=== PATIENT | female | born 1950 | race African-American/Black ===

== ENCOUNTER 2018-05-16 10:04 | Outpatient (CLI) | payer MEDICARE ==
--- NOTE | 2018-05-16 12:30 | BD ---
BONE DENSITOMETRY USING DEXA: HISTORY: Postmenopausal screening for osteoporosis. LUMBAR SPINE BMD (g/cm2) T-SCORE Z-SCORE L1 0.614 -3.4 -1.7 L2 0.643 -3.5 -1.6 L3 0.752 -3.0 -1.0 L4 0.958 -0.9 1.1 TOTAL 0.748 -2.7 -0.8 NECK 0.583 -2.4 -0.8 TOTAL 0.667 -2.3 -0.9 IMPRESSION: Osteoporosis. POS: [facility]
== END 2018-05-16 10:05 | disposition home or self-care (01) ==
LOC: BICMAMMO 10:04
PROVIDERS: ATTEND Internal Medicine
DX: Z13.820 Encounter for screening for osteoporosis (principal); M81.0 Age-related osteoporosis without current pathological fracture; Z78.0 Asymptomatic menopausal state
CPT/HCPCS: 77080

== ENCOUNTER → 2022-06-10 | Outpatient (CLI) | payer OTHER | LOC: PET 09:30 | PROVIDERS: ATTEND Internal Medicine Hematology & Oncology | DX: C53.8 Malignant neoplasm of overlapping sites of cervix uteri (principal); D63.8 Anemia in other chronic diseases classified elsewhere; N18.9 Chronic kidney disease, unspecified | CPT/HCPCS: 78815; A9552 ==

== ENCOUNTER 2022-06-28 12:10 | Outpatient (CLI) | payer OTHER | END 2022-06-28 12:11 | disposition home or self-care (01) | LOC: SCSMRI 12:10 | PROVIDERS: ATTEND Radiology Radiation Oncology | DX: C53.8 Malignant neoplasm of overlapping sites of cervix uteri (principal) | CPT/HCPCS: 72197 ==

== ENCOUNTER 2022-07-09 10:09 | Day surgery (SDC) | payer OTHER, MEDICAID ==
[2022-07-08 10:25] VITALS: BMI 19.9
[2022-07-09] MEDS ORDERED: Acetaminophen 500 MG TAB ONE (10:38)
[2022-07-09] MEDS ORDERED: Ketorolac Tromethamine 30 MG/ML VIAL ONE (10:43)
[2022-07-09] MEDS ORDERED: Lidocaine 2% PF 5 ML VIAL ONE (10:57)
[2022-07-09] MEDS ORDERED: Bupivacaine/Epinephrine 0.25% 30 ML VIAL ONE (10:57)
[2022-07-09] MEDS ORDERED: Lidocaine 1% (PF) 30 ML VIAL ONE (10:57)
[2022-07-09] MEDS ORDERED: Lidocaine 1% MPF 2 ML VIAL ONE (11:02)
[2022-07-09] MEDS ORDERED: Sodium Chloride 0.9% 100 ML ONE (11:46)
[2022-07-09] MEDS ORDERED: CEFAZOLIN 2 GM VIAL ONE (11:46)
[2022-07-09] MEDS ORDERED: fentaNYL PF 100 MCG/2 ML SYRINGE ONE (12:30)
[2022-07-09] MEDS ORDERED: Midazolam HCl 2 mg/2 ml Vial ONE (12:30)
== END 2022-07-09 14:33 | disposition home or self-care (01) ==
LOC: SDC 10:09
PROVIDERS: ATTEND Specialist
PROC: 0JH60WZ Insertion of Totally Implantable Vascular Access Device into Chest Subcutaneous Tissue and Fascia, Open Approach (ICD-10-PCS; principal; 2022-07-09)
PROC: 02HV33Z Insertion of Infusion Device into Superior Vena Cava, Percutaneous Approach (ICD-10-PCS; 2022-07-09)
DX: C53.9 Malignant neoplasm of cervix uteri, unspecified (principal); I11.9 Hypertensive heart disease without heart failure; E11.29 Type 2 diabetes mellitus with other diabetic kidney complication; E78.5 Hyperlipidemia, unspecified; Z79.83 Long term (current) use of bisphosphonates; Z79.84 Long term (current) use of oral hypoglycemic drugs; Z79.899 Other long term (current) drug therapy
CPT/HCPCS: 36561; 71045; C1788; J1642; J1885; J2001; J2250; J3490

== ENCOUNTER 2022-07-23 12:15 | Day surgery (SDC) | payer OTHER, MEDICAID ==
[2022-07-23] MEDS ORDERED: diphenhydrAMINE 25 MG CAP ONE (13:20)
[2022-07-23] MEDS ORDERED: Acetaminophen 500 MG TAB ONE (13:20)
[2022-07-23] MEDS ORDERED: cloNIDine 0.1 MG TAB ONE ×2 (13:37→14:21)
[2022-07-23] MEDS ORDERED: cloNIDine 0.1 MG TAB PO SCH (13:45)
[2022-07-23 17:51] VITALS: BP 188/70; TEMP 98
== END 2022-07-23 17:52 | disposition home or self-care (01) ==
LOC: ONC/OP 12:15
PROVIDERS: ATTEND Internal Medicine Hematology & Oncology
PROC: 30233N1 Transfusion of Nonautologous Red Blood Cells into Peripheral Vein, Percutaneous Approach (ICD-10-PCS; principal; 2022-07-23)
DX: D64.9 Anemia, unspecified (principal); D69.6 Thrombocytopenia, unspecified
CPT/HCPCS: 36430; 80053; 82248; 83615; 83735; 84100; 84550; 86850; 86900; 86901; P9016

== ENCOUNTER 2022-11-16 09:13 | Day surgery (SDC) | payer OTHER, MEDICAID ==
[~2022-11-16 09:13] MED LIST: Acetaminophen 500 MG TAB PO SCH; diphenhydrAMINE 25 MG CAP PO SCH
[2022-11-16] MEDS ORDERED: Acetaminophen 500 MG TAB ONE (09:53)
[2022-11-16 14:53] VITALS: BP 160/71; TEMP 98.7
== END 2022-11-16 14:54 | disposition home or self-care (01) ==
LOC: ONC/OP 09:13
PROVIDERS: ATTEND Internal Medicine Hematology & Oncology
DX: D64.9 Anemia, unspecified (principal)
CPT/HCPCS: 36430; 86850; 86900; 86901; 86920; P9016

== ENCOUNTER 2023-01-30 15:45 | Inpatient (IN) | payer OTHER, MEDICAID ==
[2023-01-30] MEDS ORDERED: Ondansetron PF 4 MG/2 ML Vial IVP PRN (16:04)
[2023-01-30] MEDS ORDERED: Sodium Chloride 0.9% 1,000 ML IV SCH (16:15)
[2023-01-30 16:31] VITALS: BMI 20.5
[2023-01-30] MEDS: traMADol HCl 50 MG TAB PO SCH ×2 (17:18→23:19)
[2023-01-30] MEDS: Acetaminophen 500 MG TAB PO SCH ×2 (17:18→23:19)
[2023-01-30] MEDS: Sodium Chloride 0.9% 1,000 ML IV SCH (17:19)
[2023-01-30] MEDS: Morphine 2 MG/ML VIAL SLOW IVP PRN ×2 (17:28→23:17)
[2023-01-30 18:03] LABS: #Eosinphils 0.1 thou/uL (0.0-0.7); #Monocytes 0.7 thou/uL (0.11-0.59); #Neutrophils 5.1 thou/uL (1.40-6.50); %Eosinophils 0.8 % (0.0-10.0); %Lymphocytes 9.5 % (21.0-51.0); %Monocytes 10.9 % (0.0-10.0); %Neutrophils 78.5 % (42.0-75.0); Hematocrit 22.1 % (36.0-47.0); Hemoglobin 6.9 g/dL (12.0-16.0); Mean Corpuscular HGB CONC 31.2 g/dL (32.0-36.0); Mean Corpuscular Hemoglobin 29.7 pg (27.0-31.0); Mean Corpuscular Volume 95.3 fl (78.0-98.0); Platelet Count 162 10x3/uL (130-400); RBC Distribution Width 14.4 % (11.5-14.5); Red Blood Cell (RBC) Count 2.32 mill/uL (4.20-5.40); White Blood Cell (WBC) Count 6.5 10x3/uL (4.8-10.8)
[2023-01-30 18:17] LABS: INR-International Normal Ratio 1.3; Prothrombin Time 16.3 sec (12.0-14.7)
[2023-01-30 18:18] LABS: PTT 31.3 sec (22.9-36.1)
[2023-01-30] MEDS ORDERED: Dextrose 50% Abboject 50 ML SYRINGE SLOW IVP PRN (18:19)
[2023-01-30] MEDS ORDERED: Glucagon 1 MG/ML KIT IM PRN (18:19)
[2023-01-30] MEDS ORDERED: Dextrose 5% in Water 1,000 ML IV PRN (18:19)
[2023-01-30 18:26] LABS: Anion Gap 13 mmol/L (10-20); BUN (Urea Nitrogen) 15 mg/dL (9.8-20.1); Calc. Creatinine Clearance 55 mL/min (70-130); Calcium 9.2 mg/dL (7.8-10.44); Carbon Dioxide 24 mmol/L (23-31); Chloride 105 mmol/L (98-107); Estimated GFR 75; Glucose 130 mg/dL (83-110); Potassium 3.7 mmol/L (3.5-5.1); Sodium 138 mmol/L (136-145)
[2023-01-30] MEDS: cloNIDine 0.1 MG TAB PO SCH (21:49)
[2023-01-30] MEDS: Gabapentin 100 MG CAP PO SCH (21:50)
[2023-01-30] MEDS: Senokot S 8.6-50 MG TAB PO SCH (21:51)
[2023-01-30] MEDS: traMADol HCl 50 MG TAB PO PRN (21:51)
[2023-01-31] MEDS: Morphine 2 MG/ML VIAL SLOW IVP PRN (04:08)
[2023-01-31] MEDS: traMADol HCl 50 MG TAB PO SCH ×3 (05:37→17:56)
[2023-01-31] MEDS: Acetaminophen 500 MG TAB PO SCH ×4 (05:39→17:56)
[2023-01-31 05:59] LABS: #Eosinphils 0.1 thou/uL (0.0-0.7); #Monocytes 0.6 thou/uL (0.11-0.59); #Neutrophils 2.5 thou/uL (1.40-6.50); %Basophils 0.3 % (0.0-1.0); %Eosinophils 1.3 % (0.0-10.0); %Lymphocytes 15.7 % (21.0-51.0); %Monocytes 16.2 % (0.0-10.0); Hematocrit 22.5 % (36.0-47.0); Hemoglobin 7.2 g/dL (12.0-16.0); Mean Corpuscular Hemoglobin 29.4 pg (27.0-31.0); Mean Platelet Volume 10.4 fL (7.4-10.4); Platelet Count 125 10x3/uL (130-400); RBC Distribution Width 15.6 % (11.5-14.5); Red Blood Cell (RBC) Count 2.45 mill/uL (4.20-5.40); White Blood Cell (WBC) Count 3.8 10x3/uL (4.8-10.8)
[2023-01-31 06:01] LABS: Mean Corpuscular Volume 91.8 fl (78.0-98.0)
[2023-01-31 06:13] LABS: INR-International Normal Ratio 1.4; PTT 32.5 sec (22.9-36.1); Prothrombin Time 17.5 sec (12.0-14.7)
[2023-01-31 06:21] LABS: Anion Gap 10 mmol/L (10-20); BUN (Urea Nitrogen) 13 mg/dL (9.8-20.1); Calc. Creatinine Clearance 56 mL/min (70-130); Calcium 8.7 mg/dL (7.8-10.44); Carbon Dioxide 24 mmol/L (23-31); Chloride 104 mmol/L (98-107); Estimated GFR 78; Glucose 135 mg/dL (83-110); Potassium 4.1 mmol/L (3.5-5.1); Sodium 134 mmol/L (136-145)
[2023-01-31] MEDS ORDERED: CEFAZOLIN 2 GM in Sodium Chloride 0.9% 100 ML IVPB SCH (07:30)
[2023-01-31] MEDS: Polyethylene Glycol 3350 17 GM Packet PO SCH (08:02)
[2023-01-31] MEDS: Senokot S 8.6-50 MG TAB PO SCH ×2 (08:05→20:50)
[2023-01-31] MEDS ORDERED: cloNIDine 0.1 MG TAB PO SCH (09:00)
[2023-01-31] MEDS ORDERED: fentaNYL PF 100 MCG/2 ML SYRINGE ONE (10:03)
[2023-01-31] MEDS ORDERED: CEFAZOLIN 2 GM VIAL ONE (10:21)
[2023-01-31] MEDS ORDERED: Sodium Chloride 0.9% 100 ML ONE (10:22)
[2023-01-31] MEDS ORDERED: Glycopyrrolate 0.2 MG/ML 5 ML SYRINGE ONE (10:43)
[2023-01-31] MEDS ORDERED: PROPOFOL 200 MG/20 ML VIAL ONE (10:43)
[2023-01-31] MEDS ORDERED: Ondansetron PF 4 MG/2 ML Vial ONE (10:43)
[2023-01-31] MEDS: Ferrous Sulfate 325 MG TAB PO SCH ×2 (10:51→17:57)
[2023-01-31] MEDS: Rosuvastatin 5 MG TAB PO SCH (10:51)
[2023-01-31] MEDS: Gabapentin 100 MG CAP PO SCH ×2 (10:51→20:50)
[2023-01-31] MEDS: Famotidine 20 MG TAB PO SCH (10:51)
[2023-01-31] MEDS: Amlodipine 5 MG TAB PO SCH (10:51)
[2023-01-31] MEDS ORDERED: fentaNYL 50 mcg/mL 1 mL Vial ONE ×2 (12:07→12:25)
[2023-01-31] MEDS ORDERED: Non-Formulary Medication 1 EACH PO PRN (12:50)
[2023-01-31] MEDS ORDERED: Ondansetron HCl/PF 4 MG/2 ML Vial IVP PRN (13:00)
[2023-01-31] MEDS ORDERED: Promethazine HCl 25 MG/ML VIAL IM PRN (13:00)
[2023-01-31] MEDS: Sodium Chloride 0.9% 1,000 ML IV SCH (13:39)
[2023-01-31] MEDS: traMADol HCl 50 MG TAB PO PRN (14:12)
[2023-01-31] MEDS: Cyclobenzaprine 10 MG TAB PO PRN (15:29)
[2023-01-31] MEDS ORDERED: Furosemide 40 MG/4 ML VIAL SLOW IVP SCH (17:30)
[2023-01-31] MEDS: CEFAZOLIN 2 GM in Sodium Chloride 0.9% 100 ML IVPB SCH (17:57)
[2023-01-31] MEDS: cloNIDine 0.1 MG TAB PO SCH (20:51)
[2023-01-31 20:52] LABS: #Monocytes 0.6 thou/uL (0.11-0.59); #Neutrophils 6.2 thou/uL (1.40-6.50); %Lymphocytes 6.3 % (21.0-51.0); %Monocytes 7.7 % (0.0-10.0); %Neutrophils 85.9 % (42.0-75.0); Hematocrit 25.7 % (36.0-47.0); Hemoglobin 8.5 g/dL (12.0-16.0); Mean Corpuscular HGB CONC 33.1 g/dL (32.0-36.0); Mean Corpuscular Hemoglobin 27.3 pg (27.0-31.0); Mean Platelet Volume 10.4 fL (7.4-10.4); Platelet Count 128 10x3/uL (130-400); RBC Distribution Width 24.2 % (11.5-14.5); Red Blood Cell (RBC) Count 3.11 mill/uL (4.20-5.40); White Blood Cell (WBC) Count 7.2 10x3/uL (4.8-10.8)
[2023-01-31 20:54] LABS: Mean Corpuscular Volume 82.6 fl (78.0-98.0)
[2023-02-01] MEDS: Acetaminophen 500 MG TAB PO SCH ×4 (00:07→17:48)
[2023-02-01] MEDS: traMADol HCl 50 MG TAB PO SCH ×4 (00:08→17:48)
[2023-02-01] MEDS: CEFAZOLIN 2 GM in Sodium Chloride 0.9% 100 ML IVPB SCH (01:45)
[2023-02-01] MEDS: Cyclobenzaprine 10 MG TAB PO PRN ×2 (04:19→20:46)
[2023-02-01] MEDS: traMADol HCl 50 MG TAB PO PRN ×2 (04:20→20:45)
[2023-02-01 06:34] LABS: #Monocytes 1.1 thou/uL (0.11-0.59); #Neutrophils 4.3 thou/uL (1.40-6.50); %Eosinophils 0.2 % (0.0-10.0); %Lymphocytes 9.6 % (21.0-51.0); %Monocytes 18.5 % (0.0-10.0); %Neutrophils 71.2 % (42.0-75.0); Hematocrit 22.9 % (36.0-47.0); Hemoglobin 7.6 g/dL (12.0-16.0); Mean Corpuscular HGB CONC 33.2 g/dL (32.0-36.0); Mean Corpuscular Hemoglobin 27.6 pg (27.0-31.0); Mean Corpuscular Volume 83.3 fl (78.0-98.0); Mean Platelet Volume 10.7 fL (7.4-10.4); Platelet Count 123 10x3/uL (130-400); RBC Distribution Width 24.5 % (11.5-14.5); Red Blood Cell (RBC) Count 2.75 mill/uL (4.20-5.40)
[2023-02-01 07:33] LABS: CellaVision Operator ID LAB.GE; Large Platelets 2.9 % (0-5); Platelet Adequacy Comment Platelets Decreased; Polychromasia SLIGHT = 2-3 cells HPF (0-2)
[2023-02-01] MEDS: Pregabalin 75 MG CAP PO SCH ×2 (09:00→20:44)
[2023-02-01] MEDS: Ferrous Sulfate 325 MG TAB PO SCH ×2 (09:01→17:48)
[2023-02-01] MEDS: Rosuvastatin 5 MG TAB PO SCH (09:01)
[2023-02-01] MEDS: Amlodipine 5 MG TAB PO SCH (09:01)
[2023-02-01] MEDS: Famotidine 20 MG TAB PO SCH (09:01)
[2023-02-01] MEDS: Senokot S 8.6-50 MG TAB PO SCH ×2 (09:02→20:43)
[2023-02-01] MEDS: Polyethylene Glycol 3350 17 GM Packet PO SCH (09:02)
[2023-02-01] MEDS: Morphine 2 MG/ML VIAL SLOW IVP PRN (09:06)
[2023-02-01] MEDS: HumaLOG 300 UNITS/3 ML VIAL SC PRN (17:51)
[2023-02-01] MEDS: cloNIDine 0.1 MG TAB PO SCH (20:44)
[2023-02-02] MEDS: traMADol HCl 50 MG TAB PO SCH ×4 (00:48→17:37)
[2023-02-02] MEDS: Acetaminophen 500 MG TAB PO SCH ×4 (00:48→17:38)
[2023-02-02] MEDS: Morphine 2 MG/ML VIAL SLOW IVP PRN (02:10)
[2023-02-02] MEDS: Polyethylene Glycol 3350 17 GM Packet PO SCH (05:12)
[2023-02-02] MEDS: traMADol HCl 50 MG TAB PO PRN (05:13)
[2023-02-02] MEDS: Cyclobenzaprine 10 MG TAB PO PRN ×2 (05:13→20:16)
[2023-02-02 05:40] LABS: Hematocrit 23.5 % (36.0-47.0); Hemoglobin 7.7 g/dL (12.0-16.0); Mean Corpuscular HGB CONC 32.8 g/dL (32.0-36.0); Mean Corpuscular Hemoglobin 27.7 pg (27.0-31.0); Mean Corpuscular Volume 84.5 fl (78.0-98.0); Mean Platelet Volume 10.5 fL (7.4-10.4); Platelet Count 133 10x3/uL (130-400); RBC Distribution Width 22.5 % (11.5-14.5); Red Blood Cell (RBC) Count 2.78 mill/uL (4.20-5.40); White Blood Cell (WBC) Count 7.8 10x3/uL (4.8-10.8)
[2023-02-02] MEDS: Senokot S 8.6-50 MG TAB PO SCH ×2 (08:54→20:16)
[2023-02-02] MEDS: Famotidine 20 MG TAB PO SCH ×2 (08:54→20:17)
[2023-02-02] MEDS: Ferrous Sulfate 325 MG TAB PO SCH ×2 (08:54→17:38)
[2023-02-02] MEDS: Pregabalin 75 MG CAP PO SCH ×2 (08:54→20:17)
[2023-02-02] MEDS: Amlodipine 5 MG TAB PO SCH (08:55)
[2023-02-02] MEDS: Rosuvastatin 5 MG TAB PO SCH (08:55)
[2023-02-02] MEDS: cloNIDine 0.1 MG TAB PO SCH (20:17)
[2023-02-03] MEDS: traMADol HCl 50 MG TAB PO SCH ×4 (00:19→18:50)
[2023-02-03] MEDS: Acetaminophen 500 MG TAB PO SCH ×2 (00:20→05:53)
[2023-02-03 05:04] LABS: #Eosinphils 0.1 thou/uL (0.0-0.7); #Monocytes 0.6 thou/uL (0.11-0.59); #Neutrophils 3.9 thou/uL (1.40-6.50); %Lymphocytes 9.1 % (21.0-51.0); %Monocytes 12.4 % (0.0-10.0); %Neutrophils 76.3 % (42.0-75.0); Hematocrit 20.9 % (36.0-47.0); Hemoglobin 6.8 g/dL (12.0-16.0); Mean Corpuscular HGB CONC 32.5 g/dL (32.0-36.0); Mean Corpuscular Hemoglobin 27.9 pg (27.0-31.0); Mean Corpuscular Volume 85.7 fl (78.0-98.0); Mean Platelet Volume 10.2 fL (7.4-10.4); Platelet Count 128 10x3/uL (130-400); RBC Distribution Width 21.6 % (11.5-14.5); Red Blood Cell (RBC) Count 2.44 mill/uL (4.20-5.40); White Blood Cell (WBC) Count 5.1 10x3/uL (4.8-10.8)
[2023-02-03] MEDS: Ferrous Sulfate 325 MG TAB PO SCH ×2 (08:59→17:37)
[2023-02-03] MEDS: Polyethylene Glycol 3350 17 GM Packet PO SCH (09:00)
[2023-02-03] MEDS: Cyclobenzaprine 10 MG TAB PO PRN (09:00)
[2023-02-03] MEDS: Rosuvastatin 5 MG TAB PO SCH (09:00)
[2023-02-03] MEDS: Pregabalin 75 MG CAP PO SCH ×2 (09:00→20:53)
[2023-02-03] MEDS: Amlodipine 5 MG TAB PO SCH (09:00)
[2023-02-03] MEDS: Famotidine 20 MG TAB PO SCH ×2 (09:00→20:53)
[2023-02-03] MEDS: Senokot S 8.6-50 MG TAB PO SCH ×2 (09:00→20:54)
[2023-02-03] MEDS ORDERED: HYDROcodone/Acetaminophen 5/325 mg Tablet PO PRN (10:28)
[2023-02-03] MEDS: HYDROcodone/Acetaminophen 5/325 mg Tablet PO PRN ×2 (11:04→17:37)
[2023-02-03] MEDS: Acetaminophen 325 MG TAB PO PRN (12:48)
[2023-02-03 17:35] LABS: Hematocrit 24.2 % (36.0-47.0); Hemoglobin 8.3 g/dL (12.0-16.0)
[2023-02-03] MEDS: cloNIDine 0.1 MG TAB PO SCH (20:54)
[2023-02-04] MEDS: traMADol HCl 50 MG TAB PO SCH ×4 (01:13→17:47)
[2023-02-04] MEDS: HYDROcodone/Acetaminophen 5/325 mg Tablet PO PRN ×4 (05:24→21:00)
[2023-02-04 08:13] LABS: #Eosinphils 0.1 thou/uL (0.0-0.7); #Monocytes 0.8 thou/uL (0.11-0.59); #Neutrophils 3.7 thou/uL (1.40-6.50); %Basophils 0.2 % (0.0-1.0); %Eosinophils 1.2 % (0.0-10.0); %Lymphocytes 9.4 % (21.0-51.0); %Monocytes 15.7 % (0.0-10.0); %Neutrophils 72.9 % (42.0-75.0); Hematocrit 25.6 % (36.0-47.0); Hemoglobin 8.5 g/dL (12.0-16.0); Mean Corpuscular HGB CONC 33.2 g/dL (32.0-36.0); Mean Corpuscular Hemoglobin 27.3 pg (27.0-31.0); Mean Corpuscular Volume 82.3 fl (78.0-98.0); Mean Platelet Volume 10.4 fL (7.4-10.4); Platelet Count 162 10x3/uL (130-400); RBC Distribution Width 21.2 % (11.5-14.5); Red Blood Cell (RBC) Count 3.11 mill/uL (4.20-5.40)
[2023-02-04 08:36] LABS: Anion Gap 10 mmol/L (10-20); BUN (Urea Nitrogen) 16 mg/dL (9.8-20.1); Calc. Creatinine Clearance 58 mL/min (70-130); Calcium 9.1 mg/dL (7.8-10.44); Carbon Dioxide 26 mmol/L (23-31); Chloride 102 mmol/L (98-107); Estimated GFR 81; Glucose 144 mg/dL (83-110); Potassium 3.8 mmol/L (3.5-5.1); Sodium 134 mmol/L (136-145)
[2023-02-04] MEDS: Famotidine 20 MG TAB PO SCH ×2 (09:11→20:58)
[2023-02-04] MEDS: Senokot S 8.6-50 MG TAB PO SCH ×2 (09:11→21:00)
[2023-02-04] MEDS: Amlodipine 5 MG TAB PO SCH (09:11)
[2023-02-04] MEDS: Ferrous Sulfate 325 MG TAB PO SCH ×2 (09:11→17:47)
[2023-02-04] MEDS: Rosuvastatin 5 MG TAB PO SCH (09:11)
[2023-02-04] MEDS: Magnesium Oxide 400 MG TAB PO SCH (09:12)
[2023-02-04] MEDS: Ascorbic Acid 500 mg Chewable Tablet PO SCH (09:12)
[2023-02-04] MEDS: Polyethylene Glycol 3350 17 GM Packet PO SCH (09:12)
[2023-02-04] MEDS: Pregabalin 75 MG CAP PO SCH ×2 (09:12→20:59)
[2023-02-04] MEDS: Acetaminophen 325 MG TAB PO PRN (09:14)
[2023-02-04] MEDS: cloNIDine 0.1 MG TAB PO SCH (20:59)
[2023-02-05] MEDS: traMADol HCl 50 MG TAB PO SCH ×4 (00:54→17:19)
[2023-02-05] MEDS: HYDROcodone/Acetaminophen 5/325 mg Tablet PO PRN (05:28)
[2023-02-05 05:52] LABS: #Eosinphils 0.1 thou/uL (0.0-0.7); #Monocytes 0.7 thou/uL (0.11-0.59); %Basophils 0.2 % (0.0-1.0); %Eosinophils 2.1 % (0.0-10.0); %Lymphocytes 10.1 % (21.0-51.0); %Monocytes 17.4 % (0.0-10.0); %Neutrophils 69.5 % (42.0-75.0); Hematocrit 23.3 % (36.0-47.0); Hemoglobin 7.7 g/dL (12.0-16.0); Mean Corpuscular Hemoglobin 27.1 pg (27.0-31.0); Mean Platelet Volume 10.4 fL (7.4-10.4); Platelet Count 169 10x3/uL (130-400); RBC Distribution Width 20.8 % (11.5-14.5); Red Blood Cell (RBC) Count 2.84 mill/uL (4.20-5.40); White Blood Cell (WBC) Count 4.3 10x3/uL (4.8-10.8)
[2023-02-05] MEDS: Ascorbic Acid 500 mg Chewable Tablet PO SCH (09:03)
[2023-02-05] MEDS: Rosuvastatin 5 MG TAB PO SCH (09:03)
[2023-02-05] MEDS: Famotidine 20 MG TAB PO SCH (09:04)
[2023-02-05] MEDS: Ferrous Sulfate 325 MG TAB PO SCH ×2 (09:04→16:06)
[2023-02-05] MEDS: Magnesium Oxide 400 MG TAB PO SCH (09:05)
[2023-02-05] MEDS: Amlodipine 5 MG TAB PO SCH (09:05)
[2023-02-05] MEDS: Polyethylene Glycol 3350 17 GM Packet PO SCH (09:05)
[2023-02-05] MEDS: Pregabalin 75 MG CAP PO SCH (09:05)
[2023-02-05] MEDS: Senokot S 8.6-50 MG TAB PO SCH (09:05)
[2023-02-05] MEDS: HumaLOG 300 UNITS/3 ML VIAL SC PRN (12:30)
[2023-02-05 15:45] VITALS: BP 146/63; TEMP 98.6
[2023-02-05] MEDS: Cyclobenzaprine 10 MG TAB PO PRN (16:06)
[2023-02-06] MEDS ORDERED: Gabapentin 100 MG CAP PO SCH (09:00)
== END 2023-02-05 18:22 | disposition swing bed (61) | DRG 482 ==
LOC: SJJU 15:45
PROVIDERS: ADMIT Specialist; ATTEND Specialist
PROC: 30233N1 Transfusion of Nonautologous Red Blood Cells into Peripheral Vein, Percutaneous Approach (ICD-10-PCS; 2023-01-30)
PROC: 0QSB04Z Reposition Right Lower Femur with Internal Fixation Device, Open Approach (ICD-10-PCS; principal; 2023-01-31)
DX: S72.491A Other fracture of lower end of right femur, initial encounter for closed fracture (principal); E11.22 Type 2 diabetes mellitus with diabetic chronic kidney disease; I12.9 Hypertensive chronic kidney disease with stage 1 through stage 4 chronic kidney disease, or unspecified chronic kidney disease; N18.9 Chronic kidney disease, unspecified; R33.9 Retention of urine, unspecified; W19.XXXA Unspecified fall, initial encounter; D50.8 Other iron deficiency anemias; E78.5 Hyperlipidemia, unspecified; Z98.890 Other specified postprocedural states; Z79.84 Long term (current) use of oral hypoglycemic drugs; Z79.899 Other long term (current) drug therapy
CPT/HCPCS: 36415; 36416; 36430; 72170; 80048; 83880; 85025; 85027; 85610; 85730; 86850; 86900; 86901; C1713; J1642; J1650; J1815; J1940; J2272; J2405; J2704; J3010; J3490; J7050; P9016

== ENCOUNTER 2023-04-14 11:45 | Outpatient (CLI) | payer OTHER, MEDICAID | END 2023-04-14 11:46 | disposition home or self-care (01) | LOC: PET 11:45 | PROVIDERS: ATTEND Internal Medicine Hematology & Oncology | DX: C53.8 Malignant neoplasm of overlapping sites of cervix uteri (principal) | CPT/HCPCS: 78815; A9552 ==

== ENCOUNTER 2023-06-15 17:06 | Inpatient (IN) | payer OTHER, MEDICAID ==
[2023-06-15] MEDS ORDERED: Glucagon 1 MG/ML KIT IM PRN (21:00)
[2023-06-15] MEDS ORDERED: Ondansetron ODT 4 MG TAB PO PRN (21:00)
[2023-06-15] MEDS ORDERED: Dextrose 50% Abboject 50 ML SYRINGE SLOW IVP PRN (21:00)
[2023-06-15] MEDS ORDERED: Dextrose 5% in Water 1,000 ML IV PRN (21:00)
[2023-06-15] MEDS ORDERED: HumaLOG 300 UNITS/3 ML VIAL SC PRN (21:02)
[2023-06-15] MEDS ORDERED: Furosemide 20 MG (2 mL) VIAL SLOW IVP SCH (22:15)
[2023-06-16 03:11] LABS: Creatinine, Urine 29.38 mg/dL (47-110)
[2023-06-16 06:45] LABS: #Monocytes 0.8 thou/uL (0.11-0.59); #Neutrophils 8.1 thou/uL (1.40-6.50); %Basophils 0.1 % (0.0-1.0); %Eosinophils 0.1 % (0.0-10.0); %Lymphocytes 5.1 % (21.0-51.0); %Neutrophils 85.7 % (42.0-75.0); Hematocrit 33.8 % (36.0-47.0); Mean Corpuscular HGB CONC 32.5 g/dL (32.0-36.0); Mean Corpuscular Volume 82.8 fl (78.0-98.0); Mean Platelet Volume 10.7 fL (7.4-10.4); Platelet Count 202 10x3/uL (130-400); RBC Distribution Width 14.8 % (11.5-14.5); Red Blood Cell (RBC) Count 4.08 mill/uL (4.20-5.40); White Blood Cell (WBC) Count 9.5 10x3/uL (4.8-10.8)
[2023-06-16 07:07] LABS: Cardiac Risk 4.1 (Less than 4.5); Cholesterol 94 mg/dl (< 200 Desired); HDL Cholesterol 23 mg/dL (>60 Neg Risk); LDL Cholesterol, Calculated 51 mg/dL; Triglycerides 101 mg/dL (Less than 150)
[2023-06-16 07:49] LABS: ALT (SGPT) Less than 7 U/L (8-55); AST (SGOT) 10 U/L (5-34); Albumin 3.1 g/dL (3.4-4.8); Alkaline Phosphatase 50 U/L (40-110); Anion Gap 16 mmol/L (10-20); BUN (Urea Nitrogen) 66 mg/dL (9.8-20.1); Bilirubin, Total 1.1 mg/dL (0.2-1.2); Calc. Creatinine Clearance 27 mL/min (70-130); Calcium 9.5 mg/dL (7.8-10.44); Carbon Dioxide 17 mmol/L (23-31); Chloride 105 mmol/L (98-107); Estimated GFR 42; Globulin 4.9 g/dL (2.4-3.5); Glucose 169 mg/dL (83-110); Magnesium 2.2 mg/dL (1.6-2.6); Potassium 5.3 mmol/L (3.5-5.1); Sodium 133 mmol/L (136-145)
[2023-06-16] MEDS ORDERED: traMADol HCl 50 MG TAB PO PRN (08:01)
[2023-06-16] MEDS ORDERED: Famotidine 20 MG TAB PO PRN (08:01)
[2023-06-16] MEDS: Gabapentin 100 MG CAP PO SCH ×2 (09:28→20:53)
[2023-06-16] MEDS: Ferrous Sulfate 325 MG TAB PO SCH ×2 (09:28→20:49)
[2023-06-16] MEDS: Rosuvastatin 5 MG TAB PO SCH (09:28)
[2023-06-16] MEDS: Amlodipine 5 MG TAB PO SCH (09:29)
[2023-06-16] MEDS: Pantoprazole 40 MG VIAL IVP SCH ×2 (09:30→20:49)
[2023-06-16] MEDS: Pregabalin 75 MG CAP PO SCH ×2 (09:30→20:53)
[2023-06-16] MEDS ORDERED: Lactated Ringer's 500 ML IV SCH (12:15)
[2023-06-16] MEDS ORDERED: Sodium Chloride 0.9% 500 ML IV SCH (12:45)
[2023-06-16] MEDS: Acetaminophen 325 MG TAB PO PRN ×2 (13:21→20:50)
[2023-06-16] MEDS ORDERED: Iopamidol 370 76% 100 ML VIAL ONE (13:56)
[2023-06-16 14:18] LABS: Hematocrit 32.9 % (36.0-47.0); Hemoglobin 10.9 g/dL (12.0-16.0)
[2023-06-16] MEDS: cefTRIAXone\\ROCEPHIN 1 GM in Sodium Chloride 0.9% 100 ML IVPB SCH (15:36)
[2023-06-16] MEDS: cloNIDine 0.1 MG TAB PO SCH (20:50)
[2023-06-17] MEDS ORDERED: Loperamide HCl 2 MG CAP PO SCH (05:00)
[2023-06-17 05:44] LABS: #Monocytes 0.6 thou/uL (0.11-0.59); #Neutrophils 6.6 thou/uL (1.40-6.50); %Basophils 0.1 % (0.0-1.0); %Eosinophils 0.4 % (0.0-10.0); %Lymphocytes 7.3 % (21.0-51.0); %Monocytes 7.1 % (0.0-10.0); %Neutrophils 84.5 % (42.0-75.0); Hematocrit 34.3 % (36.0-47.0); Hemoglobin 11.2 g/dL (12.0-16.0); Mean Corpuscular HGB CONC 32.7 g/dL (32.0-36.0); Mean Corpuscular Hemoglobin 27.5 pg (27.0-31.0); Mean Corpuscular Volume 84.1 fl (78.0-98.0); Mean Platelet Volume 10.6 fL (7.4-10.4); Platelet Count 188 10x3/uL (130-400); RBC Distribution Width 15.8 % (11.5-14.5); Red Blood Cell (RBC) Count 4.08 mill/uL (4.20-5.40); White Blood Cell (WBC) Count 7.8 10x3/uL (4.8-10.8)
[2023-06-17 05:59] LABS: Phosphorus 3.2 mg/dL (2.3-4.7)
[2023-06-17 06:04] LABS: ALT (SGPT) Less than 7 U/L (8-55); AST (SGOT) 11 U/L (5-34); Albumin 3.1 g/dL (3.4-4.8); Alkaline Phosphatase 45 U/L (40-110); Anion Gap 13 mmol/L (10-20); BUN (Urea Nitrogen) 47 mg/dL (9.8-20.1); Bilirubin, Total 0.5 mg/dL (0.2-1.2); Calc. Creatinine Clearance 34 mL/min (70-130); Calcium 9.6 mg/dL (7.8-10.44); Carbon Dioxide 19 mmol/L (23-31); Chloride 106 mmol/L (98-107); Estimated GFR 55; Globulin 4.6 g/dL (2.4-3.5); Glucose 141 mg/dL (83-110); Magnesium 1.9 mg/dL (1.6-2.6); Potassium 4.8 mmol/L (3.5-5.1); Protein, Total 7.7 g/dL (5.8-8.1); Sodium 133 mmol/L (136-145)
[2023-06-17] MEDS ORDERED: Ferrous Sulfate 325 MG TAB PO SCH (08:30)
[2023-06-17] MEDS: Pregabalin 75 MG CAP PO SCH ×2 (10:11→21:20)
[2023-06-17] MEDS: Rosuvastatin 5 MG TAB PO SCH (10:12)
[2023-06-17] MEDS: Gabapentin 100 MG CAP PO SCH ×2 (10:12→21:20)
[2023-06-17] MEDS: Pantoprazole 40 MG VIAL IVP SCH ×2 (10:13→21:19)
[2023-06-17] MEDS ORDERED: Sodium Chloride 0.9% 500 ML IV SCH (14:15)
[2023-06-17] MEDS: Amlodipine 5 MG TAB PO SCH (14:44)
[2023-06-17] MEDS: cefTRIAXone\\ROCEPHIN 1 GM in Sodium Chloride 0.9% 100 ML IVPB SCH (15:01)
[2023-06-17] MEDS: Ferrous Sulfate 325 MG TAB PO SCH (17:43)
[2023-06-17] MEDS: Acetaminophen 325 MG TAB PO PRN (21:19)
[2023-06-17] MEDS: cloNIDine 0.1 MG TAB PO SCH (21:20)
[2023-06-18] MEDS: Acetaminophen 325 MG TAB PO PRN (03:38)
[2023-06-18 05:17] LABS: #Eosinphils 0.1 thou/uL (0.0-0.7); #Monocytes 0.6 thou/uL (0.11-0.59); %Basophils 0.3 % (0.0-1.0); %Eosinophils 1.3 % (0.0-10.0); %Lymphocytes 9.3 % (21.0-51.0); %Monocytes 9.7 % (0.0-10.0); %Neutrophils 78.6 % (42.0-75.0); Hematocrit 31.3 % (36.0-47.0); Hemoglobin 10.2 g/dL (12.0-16.0); Mean Corpuscular HGB CONC 32.6 g/dL (32.0-36.0); Mean Corpuscular Hemoglobin 27.6 pg (27.0-31.0); Mean Corpuscular Volume 84.8 fl (78.0-98.0); Mean Platelet Volume 10.3 fL (7.4-10.4); Platelet Count 170 10x3/uL (130-400); RBC Distribution Width 15.8 % (11.5-14.5); Red Blood Cell (RBC) Count 3.69 mill/uL (4.20-5.40); White Blood Cell (WBC) Count 6.3 10x3/uL (4.8-10.8)
[2023-06-18 05:48] LABS: ALT (SGPT) Less than 7 U/L (8-55); AST (SGOT) 8 U/L (5-34); Albumin 2.8 g/dL (3.4-4.8); Alkaline Phosphatase 44 U/L (40-110); Anion Gap 13 mmol/L (10-20); BUN (Urea Nitrogen) 41 mg/dL (9.8-20.1); Bilirubin, Total 0.3 mg/dL (0.2-1.2); Calc. Creatinine Clearance 37 mL/min (70-130); Calcium 9.2 mg/dL (7.8-10.44); Carbon Dioxide 19 mmol/L (23-31); Chloride 108 mmol/L (98-107); Estimated GFR 61; Globulin 4.5 g/dL (2.4-3.5); Glucose 168 mg/dL (83-110); Magnesium 1.8 mg/dL (1.6-2.6); Phosphorus 2.6 mg/dL (2.3-4.7); Potassium 4.8 mmol/L (3.5-5.1); Protein, Total 7.3 g/dL (5.8-8.1); Sodium 135 mmol/L (136-145)
[2023-06-18] MEDS: Pregabalin 75 MG CAP PO SCH ×2 (09:33→20:44)
[2023-06-18] MEDS: Ferrous Sulfate 325 MG TAB PO SCH ×2 (09:33→17:29)
[2023-06-18] MEDS: Gabapentin 100 MG CAP PO SCH ×2 (09:33→20:44)
[2023-06-18] MEDS: Rosuvastatin 5 MG TAB PO SCH (09:34)
[2023-06-18] MEDS: Amlodipine 5 MG TAB PO SCH (09:34)
[2023-06-18] MEDS: Pantoprazole 40 MG VIAL IVP SCH ×2 (09:34→20:44)
[2023-06-18] MEDS ORDERED: Loperamide HCl 2 MG CAP PO PRN (09:54)
[2023-06-18] MEDS: Loperamide HCl 2 MG CAP PO PRN (11:29)
[2023-06-18] MEDS: cefTRIAXone\\ROCEPHIN 1 GM in Sodium Chloride 0.9% 100 ML IVPB SCH (15:50)
[2023-06-18] MEDS: HumaLOG 300 UNITS/3 ML VIAL SC PRN (15:52)
[2023-06-18] MEDS: cloNIDine 0.1 MG TAB PO SCH (20:44)
[2023-06-19 04:33] LABS: #Eosinphils 0.1 thou/uL (0.0-0.7); #Monocytes 0.6 thou/uL (0.11-0.59); #Neutrophils 4.6 thou/uL (1.40-6.50); %Basophils 0.2 % (0.0-1.0); %Eosinophils 1.2 % (0.0-10.0); %Lymphocytes 11.3 % (21.0-51.0); %Monocytes 9.2 % (0.0-10.0); %Neutrophils 76.8 % (42.0-75.0); Hematocrit 30.7 % (36.0-47.0); Hemoglobin 9.8 g/dL (12.0-16.0); Mean Corpuscular HGB CONC 31.9 g/dL (32.0-36.0); Mean Corpuscular Hemoglobin 27.2 pg (27.0-31.0); Mean Corpuscular Volume 85.3 fl (78.0-98.0); Mean Platelet Volume 10.5 fL (7.4-10.4); Platelet Count 163 10x3/uL (130-400); RBC Distribution Width 15.9 % (11.5-14.5)
[2023-06-19 05:00] LABS: ALT (SGPT) Less than 7 U/L (8-55); AST (SGOT) 9 U/L (5-34); Albumin 2.7 g/dL (3.4-4.8); Alkaline Phosphatase 43 U/L (40-110); Anion Gap 13 mmol/L (10-20); BUN (Urea Nitrogen) 29 mg/dL (9.8-20.1); Bilirubin, Total 0.3 mg/dL (0.2-1.2); Calc. Creatinine Clearance 43 mL/min (70-130); Calcium 8.7 mg/dL (7.8-10.44); Carbon Dioxide 20 mmol/L (23-31); Chloride 108 mmol/L (98-107); Estimated GFR 75; Globulin 4.2 g/dL (2.4-3.5); Glucose 155 mg/dL (83-110); Magnesium 1.8 mg/dL (1.6-2.6); Phosphorus 2.1 mg/dL (2.3-4.7); Potassium 4.5 mmol/L (3.5-5.1); Protein, Total 6.9 g/dL (5.8-8.1); Sodium 136 mmol/L (136-145)
[2023-06-19] MEDS: Amlodipine 5 MG TAB PO SCH (09:13)
[2023-06-19] MEDS: Pregabalin 75 MG CAP PO SCH ×2 (09:14→21:18)
[2023-06-19] MEDS: Gabapentin 100 MG CAP PO SCH ×2 (09:16→21:18)
[2023-06-19] MEDS: Rosuvastatin 5 MG TAB PO SCH (09:16)
[2023-06-19] MEDS: Ferrous Sulfate 325 MG TAB PO SCH ×2 (09:16→16:49)
[2023-06-19] MEDS: Pantoprazole 40 MG VIAL IVP SCH ×2 (09:18→21:18)
[2023-06-19] MEDS: HumaLOG 300 UNITS/3 ML VIAL SC PRN ×2 (12:32→16:50)
[2023-06-19] MEDS: cefTRIAXone\\ROCEPHIN 1 GM in Sodium Chloride 0.9% 100 ML IVPB SCH (15:29)
[2023-06-19] MEDS: Acetaminophen 325 MG TAB PO PRN (21:16)
[2023-06-19] MEDS: cloNIDine 0.1 MG TAB PO SCH (21:17)
[2023-06-19] MEDS: Loperamide HCl 2 MG CAP PO PRN (21:17)
[2023-06-20] MEDS: Loperamide HCl 2 MG CAP PO PRN (04:06)
[2023-06-20 05:38] LABS: #Eosinphils 0.1 thou/uL (0.0-0.7); #Monocytes 0.5 thou/uL (0.11-0.59); #Neutrophils 5.4 thou/uL (1.40-6.50); %Basophils 0.2 % (0.0-1.0); %Eosinophils 1.2 % (0.0-10.0); %Lymphocytes 8.8 % (21.0-51.0); %Neutrophils 81.2 % (42.0-75.0); Hematocrit 30.5 % (36.0-47.0); Hemoglobin 9.6 g/dL (12.0-16.0); Mean Corpuscular HGB CONC 31.5 g/dL (32.0-36.0); Mean Corpuscular Hemoglobin 27.4 pg (27.0-31.0); Mean Corpuscular Volume 87.1 fl (78.0-98.0); Mean Platelet Volume 11.1 fL (7.4-10.4); Platelet Count 164 10x3/uL (130-400); RBC Distribution Width 15.8 % (11.5-14.5); White Blood Cell (WBC) Count 6.6 10x3/uL (4.8-10.8)
[2023-06-20 06:06] LABS: ALT (SGPT) Less than 7 U/L (8-55); AST (SGOT) 14 U/L (5-34); Albumin 2.8 g/dL (3.4-4.8); Alkaline Phosphatase 48 U/L (40-110); Anion Gap 10 mmol/L (10-20); BUN (Urea Nitrogen) 28 mg/dL (9.8-20.1); Bilirubin, Total 0.2 mg/dL (0.2-1.2); Calc. Creatinine Clearance 44 mL/min (70-130); Calcium 8.8 mg/dL (7.8-10.44); Carbon Dioxide 21 mmol/L (23-31); Chloride 109 mmol/L (98-107); Estimated GFR 76; Glucose 186 mg/dL (83-110); Potassium 4.5 mmol/L (3.5-5.1); Protein, Total 6.8 g/dL (5.8-8.1); Sodium 135 mmol/L (136-145)
[2023-06-20] MEDS: Pregabalin 75 MG CAP PO SCH ×2 (08:01→20:34)
[2023-06-20] MEDS: Gabapentin 100 MG CAP PO SCH ×2 (08:02→20:34)
[2023-06-20] MEDS: Rosuvastatin 5 MG TAB PO SCH (08:02)
[2023-06-20] MEDS: Ferrous Sulfate 325 MG TAB PO SCH ×2 (08:02→17:15)
[2023-06-20] MEDS: Amlodipine 5 MG TAB PO SCH (08:02)
[2023-06-20] MEDS: Pantoprazole 40 MG VIAL IVP SCH (08:05)
[2023-06-20] MEDS: cloNIDine 0.1 MG TAB PO SCH (20:33)
[2023-06-21 05:08] LABS: #Eosinphils 0.1 thou/uL (0.0-0.7); #Monocytes 0.6 thou/uL (0.11-0.59); #Neutrophils 4.3 thou/uL (1.40-6.50); %Basophils 0.3 % (0.0-1.0); %Eosinophils 1.6 % (0.0-10.0); %Lymphocytes 12.9 % (21.0-51.0); %Monocytes 9.6 % (0.0-10.0); %Neutrophils 74.7 % (42.0-75.0); Hematocrit 29.9 % (36.0-47.0); Hemoglobin 9.2 g/dL (12.0-16.0); Mean Corpuscular HGB CONC 30.8 g/dL (32.0-36.0); Mean Corpuscular Hemoglobin 26.7 pg (27.0-31.0); Mean Corpuscular Volume 86.9 fl (78.0-98.0); Platelet Count 169 10x3/uL (130-400); RBC Distribution Width 16.2 % (11.5-14.5); Red Blood Cell (RBC) Count 3.44 mill/uL (4.20-5.40); White Blood Cell (WBC) Count 5.7 10x3/uL (4.8-10.8)
[2023-06-21 05:39] LABS: ALT (SGPT) Less than 7 U/L (8-55); AST (SGOT) 11 U/L (5-34); Albumin 2.8 g/dL (3.4-4.8); Alkaline Phosphatase 50 U/L (40-110); Anion Gap 8 mmol/L (10-20); BUN (Urea Nitrogen) 24 mg/dL (9.8-20.1); Bilirubin, Total 0.2 mg/dL (0.2-1.2); Calc. Creatinine Clearance 41 mL/min (70-130); Calcium 8.9 mg/dL (7.8-10.44); Carbon Dioxide 23 mmol/L (23-31); Chloride 110 mmol/L (98-107); Estimated GFR 71; Globulin 4.1 g/dL (2.4-3.5); Glucose 176 mg/dL (83-110); Potassium 4.5 mmol/L (3.5-5.1); Protein, Total 6.9 g/dL (5.8-8.1); Sodium 136 mmol/L (136-145)
[2023-06-21] MEDS: Ferrous Sulfate 325 MG TAB PO SCH (08:32)
[2023-06-21] MEDS: Rosuvastatin 5 MG TAB PO SCH (08:32)
[2023-06-21] MEDS: Gabapentin 100 MG CAP PO SCH (08:32)
[2023-06-21] MEDS: Amlodipine 5 MG TAB PO SCH (08:32)
[2023-06-21] MEDS: Pregabalin 75 MG CAP PO SCH (08:32)
[2023-06-21 08:40] VITALS: BP 148/71; TEMP 98.7
[2023-06-21] MEDS: HumaLOG 300 UNITS/3 ML VIAL SC PRN (12:21)
[2023-06-21 12:57] VITALS: BMI 15.4
== END 2023-06-21 15:15 | DRG 683 ==
LOC: MSONC 19:55
PROVIDERS: ADMIT Student in an Organized Health Care Education/Training Program; ATTEND Student in an Organized Health Care Education/Training Program
PROC: 30233N1 Transfusion of Nonautologous Red Blood Cells into Peripheral Vein, Percutaneous Approach (ICD-10-PCS; principal; 2023-06-16)
DX: N17.9 Acute kidney failure, unspecified (principal); E44.0 Moderate protein-calorie malnutrition; E87.1 Hypo-osmolality and hyponatremia; N39.0 Urinary tract infection, site not specified; Z68.1 Body mass index [BMI] 19.9 or less, adult; C53.9 Malignant neoplasm of cervix uteri, unspecified; G89.29 Other chronic pain; D63.8 Anemia in other chronic diseases classified elsewhere; E87.5 Hyperkalemia; L98.499 Non-pressure chronic ulcer of skin of other sites with unspecified severity; E86.0 Dehydration; N18.2 Chronic kidney disease, stage 2 (mild); E11.22 Type 2 diabetes mellitus with diabetic chronic kidney disease; I12.9 Hypertensive chronic kidney disease with stage 1 through stage 4 chronic kidney disease, or unspecified chronic kidney disease; L89.152 Pressure ulcer of sacral region, stage 2; E86.1 Hypovolemia; Z79.84 Long term (current) use of oral hypoglycemic drugs; Z79.899 Other long term (current) drug therapy; Z98.890 Other specified postprocedural states; Z85.41 Personal history of malignant neoplasm of cervix uteri
CPT/HCPCS: 36415; 36416; 36430; 71270; 74178; 80053; 80061; 82274; 82570; 83735; 83930; 83935; 84100; 84300; 84443; 84540; 85025; 86850; 86900; 86901; 97139; C9113; J0696; J1815; J1940; J3490; J7030; P9016; Q0162; Q9967

== ENCOUNTER 2023-09-28 23:35 | Inpatient (IN) | payer OTHER, MEDICAID ==
[2023-09-29 00:42] VITALS: BMI 16.4
[2023-10-04 12:04] VITALS: BMI 16.0
[2023-10-05 12:39] VITALS: BP 136/76; TEMP 98.4
== END 2023-10-05 13:47 | disposition home health service (06) | DRG 193 ==
LOC: T4-A 23:35
PROVIDERS: ADMIT Student in an Organized Health Care Education/Training Program; ATTEND Student in an Organized Health Care Education/Training Program
DX: J18.9 Pneumonia, unspecified organism (principal); E43 Unspecified severe protein-calorie malnutrition; L89.153 Pressure ulcer of sacral region, stage 3; N39.0 Urinary tract infection, site not specified; N17.9 Acute kidney failure, unspecified; N13.30 Unspecified hydronephrosis; D84.9 Immunodeficiency, unspecified; Z68.1 Body mass index [BMI] 19.9 or less, adult; I82.401 Acute embolism and thrombosis of unspecified deep veins of right lower extremity; Z51.5 Encounter for palliative care; R53.81 Other malaise; E78.5 Hyperlipidemia, unspecified; N18.2 Chronic kidney disease, stage 2 (mild); I12.9 Hypertensive chronic kidney disease with stage 1 through stage 4 chronic kidney disease, or unspecified chronic kidney disease; D63.1 Anemia in chronic kidney disease; B96.1 Klebsiella pneumoniae [K. pneumoniae] as the cause of diseases classified elsewhere; B96.20 Unspecified Escherichia coli [E. coli] as the cause of diseases classified elsewhere; B37.9 Candidiasis, unspecified; E11.40 Type 2 diabetes mellitus with diabetic neuropathy, unspecified; E11.22 Type 2 diabetes mellitus with diabetic chronic kidney disease; Y95 Nosocomial condition; R91.8 Other nonspecific abnormal finding of lung field; E87.6 Hypokalemia; E83.52 Hypercalcemia; R19.7 Diarrhea, unspecified; C53.9 Malignant neoplasm of cervix uteri, unspecified; Z98.890 Other specified postprocedural states; Z87.891 Personal history of nicotine dependence; Z87.81 Personal history of (healed) traumatic fracture; J18.1 Lobar pneumonia, unspecified organism; R53.1 Weakness; R09.02 Hypoxemia; I10 Essential (primary) hypertension
CPT/HCPCS: 36415; 36416; 51701; 71045; 80048; 80053; 80202; 81001; 83605; 83735; 83970; 84100; 84145; 84484; 85025; 85610; 85730; 87040; 87081; 87086; 87324; 87449; 93005; 96365; 96367; 97139; J2543; J3370; J3370-JW; J3480; J3490; J7050; J7120